=== PATIENT | male | born 1995 | race Two or more races ===

== ENCOUNTER 2024-02-13 09:49 | Emergency (ER) | payer MEDICAID ==
[~2024-02-13] VITALS: Ht 180.3 cm; Wt 63.5 kg
[2024-02-13 10:05] VITALS: O2SAT 99
[2024-02-13] MEDS ORDERED: TETANUS, DIPHTHERIA, PERTUSSIS VAC/PF 0.5ML (>10YR OLD) IM ONE (10:30)
[2024-02-13] MEDS: LIDOCAINE HCL/PF 1% 10 MG/ML 5ML VIAL INFIL ONE (11:02)
[2024-02-13] MEDS: BACITRACIN ZINC OINT UDPKT TOP ONE (11:02)
[2024-02-13] MEDS: TETANUS, DIPHTHERIA, PERTUSSIS VAC/PF 0.5ML (>10YR OLD) IM ONE (12:59)
[2024-02-13 13:19] VITALS: BP 127/69; PULSE 84; RESP 16; TEMP 98.7
== END 2024-02-13 13:18 | disposition home or self-care (01) ==
LOC: ER 09:49
DX: S01.81XA Laceration without foreign body of other part of head, initial encounter (principal); W22.8XXA Striking against or struck by other objects, initial encounter; Y93.89 Activity, other specified; Y92.89 Other specified places as the place of occurrence of the external cause; Y99.8 Other external cause status
CPT/HCPCS: 70486; 90715; 12013; 90471; 99285; J3490; Z7610

== ENCOUNTER 2024-09-18 13:44 | Emergency (ER) | payer MEDICAID, OTHER ==
[~2024-09-18] VITALS: Ht 177.8 cm; Wt 85.0 kg
[2024-09-18 13:45] VITALS: O2SAT 98
[2024-09-18 14:05] VITALS: TEMP 37.1
[2024-09-18] MEDS: SODIUM CHLORIDE 0.9% 1,000 ML IV ONE ×2 (14:32→15:35)
[2024-09-18 15:43] LABS: BASOPHILS % 0.4 % (0.0-2.0); EOSINOPHILS % 0.1 % (0.0-5.0); HEMATOCRIT. 49.8 % (42.0-52.0); LYMPHOCYTES % 13.4 % (20.0-50.0); MEAN CORPUSCULAR HGB CONC 34.1 g/dL (31.0-37.0); MEAN CORPUSCULAR VOLUME 87.9 fL (80.0-94.0); MONOCYTES % 11.8 % (2.0-8.0); NEUTROPHILS % 74.3 % (40.0-76.0); PLATELET 296 x1000/uL (130-400); RED BLOOD CELL COUNT 5.66 mill/uL (4.7-6.1); RED CELL DISTRIBUTION WIDTH 13.3 % (11.6-14.6); WHITE BLOOD COUNT 13.2 x1000/uL (4.5-11.0)
[2024-09-18 15:52] LABS: CHLORIDE 103 mEq/L (98-107); POTASSIUM 4.3 mEq/L (3.5-5.1); SODIUM 139 mEq/L (136-145)
[2024-09-18 15:53] LABS: CARBON DIOXIDE 27 mEq/L (21-32)
[2024-09-18 15:54] LABS: CALCIUM 9.5 mg/dL (8.7-10.4)
[2024-09-18 15:58] LABS: CREATININE 0.8 mg/dL (0.6-1.3); GLUCOSE 102 mg/dL (70-105); UREA NITROGEN BLOOD 12 mg/dL (9-23)
[2024-09-18 16:45] VITALS: BP 140/102; PULSE 96; RESP 18; O2SAT 98
== END 2024-09-18 17:00 | disposition home or self-care (01) ==
LOC: ER 13:44
DX: R00.0 Tachycardia, unspecified (principal); R00.2 Palpitations
CPT/HCPCS: 99283; 96360; 96361; 80048; 85025; 36415; J7030